=== PATIENT | male | born 1995 | race Caucasian/White ===

== ENCOUNTER 2023-10-14 05:35 | Outpatient (CLI) | payer BC, SELFPAY ==
[2023-10-14 10:03] LABS: HCT 43.6 % (40.0-50.0); HGB 14.8 g/dL (13.5-17.5); MCHC 33.9 % (32.0-36.0); MCV 88 fL (80-95); MPV 10.8 fL (8.0-11.0); Platelet Count 196 10^3/uL (130-400); RBC 4.93 10^6/uL (4.36-5.78); RDW 11.9 % (11.8-14.1); RDW-SD 38.6 fL; WBC 5.66 10^3/uL (4.4-10.8)
[2023-10-14 10:25] LABS: ALT 27 U/L (16-63); AST 21 U/L (15-37); Albumin 3.9 g/dL (3.4-5.0); Alkaline Phosphatase 51 U/L (46-116); Anion Gap 8.4 mmol/L (3-11); BUN 17 mg/dL (7-18); Bilirubin, Total 0.7 mg/dL (0.2-1.0); CO2 29.6 mmol/L (21.0-32.0); CREATININE 1.2 mg/dL (0.70-1.30); Calcium 9.3 mg/dL (8.5-10.1); Calculated LDL 99 mg/dL (<100); Chloride 104 mmol/L (98-107); Cholesterol 162 mg/dL (<200); Estimated GFR 85.53 (mL/min/1.73m2); Glucose 95 mg/dL (74-106); HDL Cholesterol 48 mg/dL (40-60); Potassium 4.5 mmol/L (3.5-5.1); Sodium 142 mmol/L (136-145); Total Protein 7.6 g/dL (6.4-8.2); Triglyceride 75 mg/dL (<150)
[2023-10-14 10:56] LABS: Iron 85 ug/dL (65-175)
== END 2023-10-14 05:36 | disposition home or self-care (01) ==
LOC: LBO 05:36
PROVIDERS: PCP Nurse Practitioner Family; Visit Provider Nurse Practitioner Family
DX: E61.1 Iron deficiency (principal); Z13.220 Encounter for screening for lipoid disorders
CPT/HCPCS: 36415; 80053; 80061; 85027; 83540